=== PATIENT | female | born 1935 | race Caucasian/White ===

== ENCOUNTER 2016-04-27 15:25 | Emergency (ER) | payer MEDICARE, BC ==
[~2016-04-27 15:25] MED LIST: SYNTHROID112 MCG PO
== END 2016-05-28 17:29 | disposition admitted as inpatient to this hospital (09) ==
LOC: ER 15:25
DX: J18.1 Lobar pneumonia, unspecified organism (principal); R09.02 Hypoxemia; D72.829 Elevated white blood cell count, unspecified; E87.1 Hypo-osmolality and hyponatremia; F32.9 Major depressive disorder, single episode, unspecified; E03.9 Hypothyroidism, unspecified; I10 Essential (primary) hypertension; D64.9 Anemia, unspecified; Z87.440 Personal history of urinary (tract) infections; Z79.82 Long term (current) use of aspirin; Z79.02 Long term (current) use of antithrombotics/antiplatelets; Z79.899 Other long term (current) drug therapy

== ENCOUNTER 2016-05-28 15:27 | Inpatient (IN) | payer MEDICARE, BC ==
--- NOTE | 2016-05-28 19:16 | NUR ---
1726: RECEIVED REPORT FROM BRENNAN RONDON RN FROM DEPT
--- NOTE | 2016-05-28 19:16 | NUR ---
1800: PT ON FLOOR TO ROOM 200-3 VIA STRETCHER.
--- NOTE | 2016-05-31 18:41 | NUR ---
1809- NOTIFIED OF PT WITH INCREASED RESP: 52 UPPER EXPIRATORY WHEEZES INCREASED. CONTINUES WITH WHEEZES IN UPPER LUNG ESCOBEDO. DRY COUGH. HR: 108. N/O'S NOTED. RT CALLED FOR ALBUTEROL TX AND PERCUSSION ORDERED
[2016-06-02] MEDS ORDERED: BAZA ANTIFUNGAL57 GM TOP (13:09)
[2016-06-02] MEDS ORDERED: LOTRISONE CREAM45 GM TOP (13:09)
[2016-06-02] MEDS ORDERED: ALBUTEROL2.5 MG/3 M NEB (13:10)
[2016-06-02] MEDS ORDERED: BROVANA15 MCG/2 M NEB (13:10)
[2016-06-02] MEDS ORDERED: PULMICORT0.5 MG/2 M NEB (13:10)
[2016-06-02] MEDS ORDERED: ONDANSETRON4 MG/2 M2 IV (13:11)
[2016-06-02] MEDS ORDERED: ACETAMINOPHEN650 MG RC (13:11)
[2016-06-02] MEDS ORDERED: DESENEX85 GM TOP (13:11)
[2016-06-02] MEDS ORDERED: ATIVAN4 MG/1 ML IV (13:12)
[2016-06-02] MEDS ORDERED: MORPHINE S20 MG/5 ML PO (13:12)
--- NOTE | 2016-06-02 13:55 | NUR ---
REPORT CALLED TO [phone] AT THE [facility] AND SPOKE WITH CHRISTIAN MADRID RN AND ALL HER QUESTIONS WERE ANSWERED. THE DISCHARGE SUMMARY WAS FAXED TO [phone] PER HER REQUEST. THE FAMILY IS AT THE PATIENT'S BEDSIDE AND THEY WERE NOTIFIED OF THE PATIENT BEING TRANSFERRED TO THE [facility] AND THAT I WAS ABOUT TO CALL THE EMS SERVICE TO NOTIFY THEM OF THE TRANSFER NEED. THE FAMILY WAS IN AGREEMENT THAT THE PATIENT WAS READY TO GO TO [facility] AND THEY WERE READY TO SEND HER WHENEVER ALL THE PAPER WORK WAS FINISHED.
--- NOTE | 2016-06-02 14:06 | NUR ---
[facility] WAS NOTIFIED OF THE TRANSFER NEED TO THE [facility] WITH OXYGEN.
--- NOTE | 2016-06-02 14:24 | NUR ---
PATIENT EXITED THE ICU VIA STRETCHER ACCOMPANIED BY 3 EMT'S IN NO ACUTE DISTRESS ON HER WAY TO THE [facility]. HER SON, WAS VERY APPRECIATIVE OF THE CARE RECEIVED HERE AT THE HOSPITAL AND WAS TOLD THAT HE NEEDED TO GO OVER TO THE CENTER TO GET THE PATIENT ADMITTED. HE SAID THAT HE WOULD BE DRIVING OVER THERE RIGHT NOW.
== END 2016-06-02 14:24 | disposition hospice, inpatient (51) | DRG 871 ==
LOC: ER 15:27 → ICU 17:36
PROVIDERS: ADMIT Internal Medicine
DX: A41.9 Sepsis, unspecified organism (principal); J96.01 Acute respiratory failure with hypoxia; J69.0 Pneumonitis due to inhalation of food and vomit; N17.9 Acute kidney failure, unspecified; E87.1 Hypo-osmolality and hyponatremia; I10 Essential (primary) hypertension; R13.10 Dysphagia, unspecified; F03.90 Unspecified dementia, unspecified severity, without behavioral disturbance, psychotic disturbance, mood disturbance, and anxiety; R00.0 Tachycardia, unspecified; D53.9 Nutritional anemia, unspecified; I95.9 Hypotension, unspecified; E86.9 Volume depletion, unspecified; R60.0 Localized edema; Z66 Do not resuscitate; E87.6 Hypokalemia; Z86.73 Personal history of transient ischemic attack (TIA), and cerebral infarction without residual deficits; G40.909 Epilepsy, unspecified, not intractable, without status epilepticus; E03.9 Hypothyroidism, unspecified; E53.8 Deficiency of other specified B group vitamins; Z79.82 Long term (current) use of aspirin; Z79.02 Long term (current) use of antithrombotics/antiplatelets; Z79.899 Other long term (current) drug therapy; Z82.49 Family history of ischemic heart disease and other diseases of the circulatory system; Z82.3 Family history of stroke; F32.9 Major depressive disorder, single episode, unspecified; Z87.01 Personal history of pneumonia (recurrent); D72.829 Elevated white blood cell count, unspecified
CPT/HCPCS: 36415; 87502; 92610; 93306; 94664; 96365; 96375; J1160; J1650; J1940; J2060; J3370; J7050